=== PATIENT | male | born 1950 | race Caucasian/White ===

== ENCOUNTER 2019-06-06 09:28 | Emergency (ER) | payer MEDICARE, SELFPAY ==
[2019-06-06 09:30] VITALS: BP 105/62; PULSE 68; RESP 18; TEMP 36.8; O2SAT 98; BMI 30.4
--- NOTE | 2019-06-06 10:08 | ED.VIS.LOWEX ---
History of Present Illness Chief Complaint: Lower Extremity Injury Informant: Patient, Family Limited: - - baseline mental status Occurred: Yesterday Mechanism/Context: Fall Associated Symptoms: Negative for: Parasthesia, Weakness, Loss of Funtion Narrative: Patient is a 59-year-old male with history of mental retardation and hypertension presenting for evaluation after a fall. Patient is accompanied by his sister. He is on a daily aspirin. He does not have a history of coronary artery disease or stroke. Patient had a fall last night that was mechanical. He hit the back of his leg on a box. He did not hit his head. He developed significant bruising to the back of his right leg. He has been icing it at home. He was seen by PA who was concerned for possible compartment syndrome and sent him to the emergency room for further evaluation. Patient does not have some discomfort left side but still ambulating. He is minimally verbal at baseline. Family notes he does seem to have a high pain tolerance. He also has an abrasion to his left knee and left elbow. Not sure when his last tetanus was. No other complaints or concerns at this time. No reported numbness or tingling. Tetanus Immunization: Unknown Past Medical History - Allergies and Home Meds Allergies/Adverse Reactions: Allergies Penicillins [PCN] Allergy (Verified 06/06/19 09:31) Unknown Primary Care Physician: Monica Nuñez MD [Primary Care Provider] - Past Medical History: - - Mental retardation, hypertension Surgical History: noncontributory Lives: With Family Smoking Status: Never smoker Review of Systems General: Denies: Chills, Fever, Sweats Eyes: Denies: Visual changes - bilaterally, Diplopia ENT: Denies: Rhinorrhea, Sore throat Cardiovascular: Denies: Chest pain, Palpitations Respiratory: Denies: Dyspnea, Cough, Dyspnea on exertion Gastrointestinal: Denies: Abdominal pain, Nausea, Vomiting, Diarrhea, Melena, Hematochezia Genitourinary: Denies: Dysuria, Hematuria, Frequency Musculoskeletal: Reports: Swelling, Extremity Pain - right thigh. Denies: Back pain Skin: Reports: Abrasions - left knee, left elbow . Denies: Rash, Wounds Neurological: Denies: Headache, Weakness, Numbness Physical Exam Vital Signs/Narrative: Vital Signs Temp Pulse Resp BP Pulse Ox 06/06/19 09:30 98.2 F 68 18 105/62 98 Inital Vital Signs reviewed: Yes - Extremity Exam Left Hip: Negative for: Deformity, Edema, Limited ROM Right Femur: Hematoma - Posterior mid thigh, about 10 cm x 3 cm. Compartment proximally and distally are soft.. Negative for: Deformity, Edema, Limited ROM Left Femur: Negative for: Deformity, Edema, Hematoma, Limited ROM Right Knee: Negative for: Contusion, Deformity, Edema, Hematoma, Limited ROM Left Knee: Abrasion - 1.5 cm circumferential on anterior knee. Negative for: Contusion, Deformity, Edema, Hematoma, Limited ROM Right Tib fib: Hematoma - Proximal medial calf, distal compartments are soft. Negative for: Abrasion, Contusion, Deformity, Edema, Limited ROM Left Tib Fib: Negative for: Abrasion, Deformity, Edema, Hematoma, Limited ROM General: Well nourished, Well developed Head: Normocephalic, Atraumatic Eyes: Perrl, EOMI ENT: No Trauma, Moist Mucous Membranes Neck: Nontender, Full ROM Cardiovascular: Regular rate, Regular rhythm, No murmurs, - - 2+ bilateral popliteal and DP pulses Respiratory: No distress, CTA bilaterally, Chest nontender Abdomen: Soft, Nontender Back: Nontender Skin: Normal color, No rash, - - 1 cm circumferential abrasion over the left olecranon. Negative for: Rash, Trauma Neurological: Alert, Cranial nerves II-XII grossly intact, Normal Strength, Normal Sensation, Normal Gait Psychological: Normal affect, Normal Mood Diagnostic/Tx/Re-eval - Medical Decision Making Patient is evaluated for bruising and swelling of his right leg after a fall 2020 4 hours ago. He was seen at his PCP office and they were concerned for compartment syndrome so he was sent to the emergency room for further evaluation. Patient does not have compartment syndrome based on a physical exam. He is not have pain out of proportion, pain with passive range of motion or tight compartments. He is not eliciting any paresthesias. He is equal distal pulses. I suspect these are just hematomas of his right posterior thigh and right proximal calf. Patient's tetanus will be updated as he does have some abrasions on the left side. He is not having signs of head trauma and per report did not hit his head. I do not think he requires any imaging. Patient is on primary prevention aspirin because of family history of coronary artery disease and personal history of hypertension. He is instructed to hold it for the next 5 days. He is counseled on hematoma care and icing. Family member is agreeable with this plan. Patient discharged home in stable condition. Counseled on signs and symptoms requiring return to the emergency room. ED Disposition - Plan for ED Patient: Disposition: Home or Assisted Living Diagnosis: Hematoma of right lower extremity, Abrasion, left knee, initial encounter, Abrasion of left elbow Instructions: Hematoma Referrals: Monica Nuñez MD [Primary Care Provider] - Additional Instructions: Hold aspirin for 5 days. Continue to ice as needed for pain. The bruising may spread or change in its distribution. This is normal bruising.
[2019-06-06] MEDS: Diphth,Pertuss(Acell),Tet Vac 0.5 ML Vial IM (10:23)
[2019-06-06 10:45] VITALS: RESP 16
== END 2019-06-06 10:46 | disposition home or self-care (01) ==
PROVIDERS: Emergency Provider Emergency Medicine; PCP Internal Medicine
DX: S50.312A Abrasion of left elbow, initial encounter (principal); S80.11XA Contusion of right lower leg, initial encounter; S80.212A Abrasion, left knee, initial encounter; W19.XXXA Unspecified fall, initial encounter; F79 Unspecified intellectual disabilities; I10 Essential (primary) hypertension; Z79.82 Long term (current) use of aspirin; Z88.0 Allergy status to penicillin
CPT/HCPCS: 90471; 90715; 99282